=== PATIENT | male | born 2005 | race Caucasian/White ===

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

== ENCOUNTER 2025-01-21 17:14 | Inpatient (IN) | payer OTHER ==
--- NOTE | 2025-01-21 17:34 | ED ---
General Adult HPI - General Chief complaint: Nausea/Vomiting/Diarrhea Stated complaint: Hyperglycemia Time Seen by Provider: 01/21/25 17:15 Source: patient, EMS, RN notes reviewed Mode of arrival: EMS Limitations: no limitations - History of Present Illness Initial comments: Patient is a 19-year-old male present to the emergency department with concerns for hyperglycemia. Patient states his insulin pump stopped working last night. Patient states blood sugar got up over 400. Patient did have nausea and vomiting. Patient had polyuria and polydipsia. Patient does feel dry. No abdominal pain. Patient still has nausea. Patient does have history of DKA twice previously with similar symptoms - Related Data Previous Rx's Medication Instructions Recorded Ondansetron Odt [Zofran Odt] 4 mg PO Q8HR PRN #14 tab 07/24/24 Allergies Allergy/AdvReac Type Severity Reaction Status Date / Time No Known Allergies Allergy Verified 01/21/25 17:20 Review of Systems ROS Statement: Those systems with pertinent positive or pertinent negative responses have been documented in the HPI. ROS Other: All systems not noted in ROS Statement are negative. Constitutional: Denies: fever Eyes: Denies: eye pain ENT: Denies: ear pain Endocrine: Reports: polydipsia, polyuria Gastrointestinal: Reports: nausea, vomiting. Denies: abdominal pain Musculoskeletal: Denies: back pain Past Medical History Past Medical History: Diabetes Mellitus Past Surgical History: No Surgical Hx Reported Past Psychological History: Depression Smoking Status: Never smoker Past Alcohol Use History: None Reported Past Drug Use History: None Reported General Exam Limitations: no limitations General appearance: alert, in no apparent distress Head exam: Present: normocephalic Eye exam: Present: normal appearance ENT exam: Present: mucous membranes dry Neck exam: Present: normal inspection Respiratory exam: Present: normal lung sounds bilaterally Cardiovascular Exam: Present: tachycardia GI/Abdominal exam: Present: soft. Absent: tenderness Extremities exam: Present: normal inspection Neurological exam: Present: alert. Absent: motor sensory deficit Psychiatric exam: Present: normal affect, normal mood Skin exam: Present: normal color Course Vital Signs 01/21/25 17:16 Temperature 98.1 F Pulse Rate 122 H Respiratory 20 Rate Blood Pressure 135/75 O2 Sat by Pulse 100 Oximetry Medical Decision Making - Medical Decision Making Was pt. sent in by a medical professional or institution (, [place], [employer] CHAIR, urgent care, hospital, or assisted...) When possible be specific @ -No Did you speak to anyone other than the patient for history (EMS, parent, family, police, friend...)? What history was obtained from this source @ -No Did you review nursing and triage notes (agree or disagree)? Why? @ -I reviewed and agree with nursing and triage notes Were old charts reviewed (outside hosp., previous admission, EMS record, old EKG, old radiological studies, urgent care reports/EKG's, assisted records)? Report findings @ -No old charts were reviewed Differential Diagnosis (chest pain, altered mental status, abdominal pain women, abdominal pain men, vaginal bleeding, weakness, fever, dyspnea, syncope, headache, dizziness, GI bleed, back pain, seizure, CVA, palpatations, mental health, musculoskeletal)? @ -Differential Weakness: Hypoglycemia, shock, sepsis, hyponatremia, anemia, infection, IL, ETOH, adverse medicine reaction, overdose, stroke, this is not meant to be an all-inclusive list. EKG interpreted by me (3pts min.). @ -As above X-rays interpreted by me (1pt min.). @ -None done CT interpreted by me (1pt min.). @ -None done U/S interpreted by me (1pt. min.). @ -None done What testing was considered but not performed or refused? (CT, X-rays, U/S, labs)? Why? @ -None What meds were considered but not given or refused? Why? @ -None Did you discuss the management of the patient with other professionals (professionals i.e. , PA, [employer] CHAIR, lab, RT, psych nurse, social service director, licensing analyst, teacher, juvenile correctional officer, rn case mgr)? Give summary @ -Case was discussed with practitioner Carrie Pereira who will admit covering Dr. Crowley Was smoking cessation discussed for >3mins.? @ -No Was critical care preformed (if so, how long)? @ -32 minutes critical care time Were there social determinants of health that impacted care today? How? (Homelessness, low income, unemployed, alcoholism, drug addiction, transportation, low edu. Level, literacy, decrease access to med. care, skilled nursing, rehab)? @ -No Was there de-escalation of care discussed even if they declined (Discuss DNR or withdrawal of care, Hospice)? DNR status @ -No What co-morbidities impacted this encounter? (DM, HTN, Smoking, COPD, CAD, Cancer, CVA, ARF, Chemo, Hep., AIDS, mental health diagnosis, sleep apnea, morbid obesity)? @ -History of diabetes, history of DKA Was patient admitted / discharged? Hospital course, mention meds given and route, prescriptions, significant lab abnormalities, going to OR and other pertinent info. @ -Patient presents with malfunction of his insulin pump. Patient with polyuria polydipsia. Patient appears dehydrated on exam. Evaluation concerning for DKA. Patient will be admitted with DKA protocol. Patient reevaluated and updated. Admission orders written. Undiagnosed new problem with uncertain prognosis? @ -No Drug Therapy requiring intensive monitoring for toxicity (Heparin, Nitro, Insulin, Cardizem)? @ -No Were any procedures done? @ -No Diagnosis/symptom? @ -Diabetic ketoacidosis Acute, or Chronic, or Acute on Chronic? @ -Acute Uncomplicated (without systemic symptoms) or Complicated (systemic symptoms)? @ -Default Side effects of treatment? @ -No Exacerbation, Progression, or Severe Exacerbation? @ -No Poses a threat to life or bodily function? How? (Chest pain, [place], [place], pneumonia, PE, COPD, DKA, ARF, appy, cholecystitis, CVA, Diverticulitis, Homicidal, Suicidal, threat to staff... and all critical care pts) @ -Threat to metabolic function - Lab Data Result diagrams: 01/21/25 17:47 01/21/25 17:47 Lab Results 01/21/25 01/21/25 01/21/25 Range/Units 17:29 17:47 17:47 WBC 11.06 H (4.50-10.00) 10*3/uL RBC 5.16 (4.40-5.60) 10*6/uL Hgb 15.4 (13.0-17.0) g/dL Hct 46.2 (39.6-50.0) % MCV 89.5 (80.0-97.0) fL MCH 29.8 (27.0-32.0) pg MCHC 33.3 (32.0-37.0) g/dL Plt Count 327 (140-440) 10*3/uL MPV 9.4 L (9.5-12.2) fL Immature Gran % (Auto) 1.1 % Neutrophils % 86.0 % Lymphocytes % 8.7 % Monocytes % 3.3 % Eosinophils % 0.1 % Basophils % 0.8 % Immature Gran # 0.12 H (0.00-0.04) 10*3/uL Neutrophils # 9.52 H (1.80-7.70) 10*3/uL Lymphocytes # 0.96 (0.90-5.00) 10*3/uL Monocytes # 0.36 (0.20-1.00) 10*3/uL Eosinophils # 0.01 L (0.04-0.35) 10*3/uL Basophils # 0.09 (0.00-0.10) 10*3/uL Sodium 142 (137-145) mmol/L Potassium 5.6 H (3.5-5.1) mmol/L Chloride 105 (98-107) mmol/L Carbon Dioxide <5 L* (22-30) mmol/L Anion Gap mmol/L BUN 12 (9-20) mg/dL Creatinine 0.75 (0.66-1.25) mg/dL Est GFR (CKD-EPI)AfAm >90 (>60 ml/min/1.73 sqM) Est GFR (CKD-EPI)NonAf >90 (>60 ml/min/1.73 sqM) Glucose 350 H (74-99) mg/dL POC Glucose (mg/dL) 321 H (70-110) mg/dL POC Glu Dynamometer Tuner ID Angely Sargent Calcium 9.5 (8.4-10.2) mg/dL Total Bilirubin 0.5 (0.2-1.3) mg/dL AST 27 (17-59) U/L ALT 21 (4-49) U/L Alkaline Phosphatase 186 H (38-126) U/L Total Protein 8.3 H (6.3-8.2) g/dL Albumin 5.1 H (3.5-5.0) g/dL Amylase 43 (30-110) U/L Lipase 38 (23-300) U/L Acetone, Qual Positive (Negative) Critical Care Time Critical Care Time: Yes Disposition Clinical Impression: DKA (diabetic ketoacidosis) Disposition: ADMITTED IP TO THIS [facility] Condition: Serious Is patient prescribed a controlled substance at d/c from ED?: No Referrals: Wendy Crowley MD [Primary Care Provider] - 1-2 days Time of Disposition: 18:55
[2025-01-21 17:40] LABS: Glucose,Whole Blood 321 mg/dL (70-110)
[2025-01-21] MEDS: ONDANSETRON 4 MG/2 ML VIAL IVP STA (18:00)
[2025-01-21] MEDS: FAMOTIDINE 20 MG/2 ML VIAL IV STA (18:00)
[2025-01-21 18:01] LABS: Basophils # (A) 0.09 10*3/uL (0.00-0.10); Basophils % (A) 0.8 %; Eosinophils # (A) 0.01 10*3/uL (0.04-0.35); Eosinophils % (A) 0.1 %; HCT 46.2 % (39.6-50.0); HGB 15.4 g/dL (13.0-17.0); Lymphocytes # (A) 0.96 10*3/uL (0.90-5.00); Lymphocytes % (A) 8.7 %; MCH 29.8 pg (27.0-32.0); MCHC 33.3 g/dL (32.0-37.0); MCV 89.5 fL (80.0-97.0); Monocytes # (A) 0.36 10*3/uL (0.20-1.00); Monocytes % (A) 3.3 %; Neutrophils # (A) 9.52 10*3/uL (1.80-7.70); Neutrophils % (A) 86.0 %; Platelet Count 327 10*3/uL (140-440); RBC 5.16 10*6/uL (4.40-5.60); RDW 13.2 % (11.5-14.5); WBC 11.06 10*3/uL (4.50-10.00)
[2025-01-21] MEDS: SODIUM CHLORIDE 0.9% 1,000 ML IV ONE ×2 (18:01→19:44)
[2025-01-21 18:13] LABS: ALT 21 U/L (4-49); AST 27 U/L (17-59); African American GFR (CKD) >90 (>60 ml/min/1.73 sqM); Albumin 5.1 g/dL (3.5-5.0); Alkaline Phosphatase 186 U/L (38-126); Amylase 43 U/L (30-110); Blood Urea Nitrogen 12 mg/dL (9-20); Calcium 9.5 mg/dL (8.4-10.2); Chloride 105 mmol/L (98-107); Glucose 350 mg/dL (74-99); Lipase 38 U/L (23-300); Non-African American GFR(CKD) >90 (>60 ml/min/1.73 sqM); Potassium 5.6 mmol/L (3.5-5.1); Sodium 142 mmol/L (137-145); Total Protein 8.3 g/dL (6.3-8.2)
[2025-01-21 18:18] LABS: Carbon Dioxide <5 mmol/L (22-30)
[2025-01-21] MEDS: SODIUM CHLORIDE 0.9% 1,000 ML IV STA (19:08)
[2025-01-21] MEDS: ACETAMINOPHEN IV (For NPO) 1,000 MG in EMPTY BAG 1 BAG IVPB STA (19:37)
[2025-01-21] MEDS: INSULIN REGULAR BOLUS (FROM DRIP BAG) IV ONE (19:41)
[2025-01-21] MEDS: INSULIN REGULAR 100 UNIT in SODIUM CHLORIDE 0.9% 100 ML IV SCH (19:41)
[2025-01-21 20:04] LABS: Bacteria,Urine Rare /hpf; Bilirubin,Urine Negative (Negative); Blood,Urine Trace (Negative); Color,Urine Colorless; Glucose,Urine (UA) 4+ (Negative); Leukocyte Esterase,Urine Negative (Negative); Mucus,Urine Rare /hpf; Nitrite,Urine Negative (Negative); PH, Urine 5.0 (5.0-8.0); Protein,Urine Trace (Negative); Specific Gravity,Urine 1.018 (1.001-1.035); Urobilinogen,Urine <2.0 mg/dL (<2.0)
[2025-01-21 20:07] LABS: Ketones,Urine 4+ (Negative)
[2025-01-21] MEDS: SODIUM CHLORIDE 0.9% 1,000 ML IV SCH (20:30)
[2025-01-21 20:37] LABS: Glucose,Whole Blood 252 mg/dL (70-110)
[2025-01-21 21:06] LABS: Glucose,Whole Blood 211 mg/dL (70-110)
[2025-01-21 21:22] LABS: African American GFR (CKD) >90 (>60 ml/min/1.73 sqM); Blood Urea Nitrogen 9 mg/dL (9-20); Chloride 116 mmol/L (98-107); Glucose 248 mg/dL (74-99); Non-African American GFR(CKD) >90 (>60 ml/min/1.73 sqM); Potassium 4.8 mmol/L (3.5-5.1); Sodium 145 mmol/L (137-145)
[2025-01-21 21:34] LABS: Carbon Dioxide <5 mmol/L (22-30)
[2025-01-21 22:17] LABS: Glucose,Whole Blood 167 mg/dL (70-110)
[2025-01-21] MEDS: D5-0.45% NACL WITH KCL 20MEQ/L 1,000 ML IV SCH (22:24)
[2025-01-21 23:05] LABS: Glucose,Whole Blood 159 mg/dL (70-110)
[2025-01-22 00:07] LABS: Glucose,Whole Blood 158 mg/dL (70-110)
[2025-01-22 00:43] LABS: African American GFR (CKD) >90 (>60 ml/min/1.73 sqM); Anion Gap 22 mmol/L; Blood Urea Nitrogen 7 mg/dL (9-20); Chloride 111 mmol/L (98-107); Glucose 164 mg/dL (74-99); Non-African American GFR(CKD) >90 (>60 ml/min/1.73 sqM); Potassium 4.4 mmol/L (3.5-5.1); Sodium 139 mmol/L (137-145)
[2025-01-22 00:44] LABS: Carbon Dioxide 6 mmol/L (22-30)
[2025-01-22 00:58] LABS: Glucose,Whole Blood 167 mg/dL (70-110)
[2025-01-22 02:09] LABS: Glucose,Whole Blood 150 mg/dL (70-110)
[2025-01-22 02:59] LABS: Glucose,Whole Blood 136 mg/dL (70-110)
[2025-01-22 04:01] LABS: Glucose,Whole Blood 144 mg/dL (70-110)
[2025-01-22 04:23] LABS: African American GFR (CKD) >90 (>60 ml/min/1.73 sqM); Anion Gap 14 mmol/L; Blood Urea Nitrogen 7 mg/dL (9-20); Carbon Dioxide 11 mmol/L (22-30); Chloride 111 mmol/L (98-107); Glucose 150 mg/dL (74-99); Non-African American GFR(CKD) >90 (>60 ml/min/1.73 sqM); Potassium 4.2 mmol/L (3.5-5.1); Sodium 136 mmol/L (137-145)
[2025-01-22 05:11] LABS: Glucose,Whole Blood 227 mg/dL (70-110)
[2025-01-22 05:59] LABS: Glucose,Whole Blood 274 mg/dL (70-110)
[2025-01-22 06:58] LABS: Glucose,Whole Blood 274 mg/dL (70-110)
[2025-01-22 08:02] LABS: Glucose,Whole Blood 217 mg/dL (70-110)
[2025-01-22 08:34] LABS: African American GFR (CKD) >90 (>60 ml/min/1.73 sqM); Anion Gap 12 mmol/L; Blood Urea Nitrogen 7 mg/dL (9-20); Carbon Dioxide 15 mmol/L (22-30); Chloride 107 mmol/L (98-107); Glucose 229 mg/dL (74-99); Non-African American GFR(CKD) >90 (>60 ml/min/1.73 sqM); Potassium 3.6 mmol/L (3.5-5.1); Sodium 134 mmol/L (137-145)
[2025-01-22 09:00] LABS: Glucose,Whole Blood 177 mg/dL (70-110)
[2025-01-22 11:04] LABS: Glucose,Whole Blood 150 mg/dL (70-110)
[2025-01-22 12:07] LABS: Glucose,Whole Blood 154 mg/dL (70-110)
--- NOTE | 2025-01-22 12:25 | P.HPIM ---
History of Present Illness This is a pleasant 19 years old male with past medical history of insulin- dependent diabetes mellitus He presents because he was using insulin pump for many years but yesterday while he was sleep because he forgot to charge it. Patient states is nothing wrong with his pump machine but only he forgot to charge it. With the morning his sugar was already high so he came to the hospital with vomiting abdominal pain which is completely resolved now. Patient denies any other new complaint no chest pain or dyspnea. No abdominal pain vomiting diarrhea. No dysuria urgency. No headache dizziness weakness numbness. Patient denies smoking alcohol discharge. Patient hemodynamically stable afebrile. CBC BMP LFTs were unremarkable except for mild elevated leukocytes at 11.0. Hemoglobin 15.4. Sodium 134 and creatinine 0.6. Liver enzymes normal except for mildly elevated alkaline phosphatase but bilirubin is normal. EKG shows sinus tachycardia at [address]-T changes Acetone was positive. Urinalysis showing ketones and glucose in the urine. Review of Systems Review of systems CONSTITUTIONAL: No fever, no malaise, no fatigue. HEENT: No recent visual problems or hearing problems. Denied any sore throat. CARDIOVASCULAR: No orthopnea, PND, no palpitations, no syncope. PULMONARY: No shortness of breath, no cough, no hemoptysis. GASTROINTESTINAL: No diarrhea, no nausea, no vomiting, no abdominal pain. Normoactive bowel sounds. NEUROLOGICAL: No headaches, no weakness, no numbness. HEMATOLOGICAL: Denies any bleeding or petechiae. GENITOURINARY: Denies any burning micturition, frequency, or urgency. MUSCULOSKELETAL/RHEUMATOLOGICAL: Denies any joint pain, swelling, or any muscle pain. ENDOCRINE: Denies any polyuria or polydipsia. Past Medical History Past Medical History: Diabetes Mellitus History of Any Multi-Drug Resistant Organisms: None Reported Past Surgical History: No Surgical Hx Reported Additional Past Surgical History / Comment(s): Testicle surgery for a testicle that didn't descend. Past Anesthesia/Blood Transfusion Reactions: No Reported Reaction Smoking Status: Never smoker - Past Family History Mother Family Medical History: Diabetes Mellitus Additional Family Medical History / Comment(s): Type 1 and type 2 DM run in family. Medications and Allergies Home Medications Medication Instructions Recorded Confirmed Type INSULIN LISPRO (For Pump) [humaLOG 0.01 units SQ-PUMP CONTINUOUS 01/21/25 01/21/25 History (For Pump)] Allergies Allergy/AdvReac Type Severity Reaction Status Date / Time No Known Allergies Allergy Verified 01/21/25 19:29 Physical Exam Vitals: Vital Signs Temp Pulse Pulse Resp BP BP Pulse Ox 01/22/25 11:10 97.7 F 81 16 106/70 97 01/22/25 07:55 98.6 F 89 16 118/66 97 01/22/25 04:00 98.1 F 87 16 118/66 99 01/22/25 00:00 98.4 F 101 H 18 123/61 99 01/21/25 21:12 98.0 F 119 H 18 144/76 99 01/21/25 20:40 98.0 F 114 H 20 132/68 99 01/21/25 19:53 117 H 20 133/67 98 01/21/25 18:30 116 H 16 115/65 99 01/21/25 18:00 122 H 16 141/71 98 01/21/25 17:16 98.1 F 122 H 20 135/75 100 Intake and Output 01/21/25 01/22/25 01/22/25 22:59 06:59 14:59 Intake Total 53.574 9.186 Balance 53.574 9.186 Intake: Intake, IV Titration 53.574 9.186 Amount Insulin Regular 100 unit 53.574 9.186 In Sodium Chloride 0.9% 100 ml @ 0.1 UNITS/KG/HR 6.872 mls/hr IV .[id number] [facility] Rx#:[id number] Other: Voiding Method Toilet Toilet # Voids 1 1 1 Weight 68.039 kg 60.2 kg GENERAL: The patient is alert and oriented x3, not in any acute distress. Well developed, well nourished. HEENT: Pupils are round and equally reacting to light. EOMI. No scleral icterus. No conjunctival pallor. Normocephalic, atraumatic. No pharyngeal erythema. No thyromegaly. CARDIOVASCULAR: S1 and S2 present. No murmurs, rubs, or gallops. PULMONARY: Chest is clear to auscultation, no wheezing , no crackles. ABDOMEN: Soft, nontender, nondistended, normoactive bowel sounds. No palpable organomegaly. MUSCULOSKELETAL: No joint swelling or deformity. EXTREMITIES: No cyanosis, clubbing, or pedal edema. NEUROLOGICAL: Gross neurological examination did not reveal any focal deficits. SKIN: No rashes. no petechiae. Results CBC & Chem 7: 01/21/25 17:47 01/22/25 07:37 Labs: Abnormal Lab Results - Last 24 Hours (Table) 01/21/25 01/21/25 01/21/25 Range/Units 17:29 17:47 17:47 WBC 11.06 H (4.50-10.00) 10*3/uL MPV 9.4 L (9.5-12.2) fL Immature Gran # 0.12 H (0.00-0.04) 10*3/uL Neutrophils # 9.52 H (1.80-7.70) 10*3/uL Eosinophils # 0.01 L (0.04-0.35) 10*3/uL Sodium (137-145) mmol/L Potassium 5.6 H (3.5-5.1) mmol/L Chloride (98-107) mmol/L Carbon Dioxide <5 L* (22-30) mmol/L BUN (9-20) mg/dL Creatinine (0.66-1.25) mg/dL Glucose 350 H (74-99) mg/dL POC Glucose (mg/dL) 321 H (70-110) mg/dL Phosphorus (2.5-4.5) mg/dL Alkaline Phosphatase 186 H (38-126) U/L Total Protein 8.3 H (6.3-8.2) g/dL Albumin 5.1 H (3.5-5.0) g/dL Urine Protein (Negative) Urine Glucose (UA) (Negative) Urine Ketones (Negative) Urine Blood (Negative) Urine Bacteria (None) /hpf Urine Mucus (None) /hpf 01/21/25 01/21/25 01/21/25 Range/Units 19:47 20:22 20:34 WBC (4.50-10.00) 10*3/uL MPV (9.5-12.2) fL Immature Gran # (0.00-0.04) 10*3/uL Neutrophils # (1.80-7.70) 10*3/uL Eosinophils # (0.04-0.35) 10*3/uL Sodium (137-145) mmol/L Potassium (3.5-5.1) mmol/L Chloride 116 H (98-107) mmol/L Carbon Dioxide <5 L* (22-30) mmol/L BUN (9-20) mg/dL Creatinine (0.66-1.25) mg/dL Glucose 248 H (74-99) mg/dL POC Glucose (mg/dL) 252 H (70-110) mg/dL Phosphorus (2.5-4.5) mg/dL Alkaline Phosphatase (38-126) U/L Total Protein (6.3-8.2) g/dL Albumin (3.5-5.0) g/dL Urine Protein Trace H (Negative) Urine Glucose (UA) 4+ H (Negative) Urine Ketones 4+ H (Negative) Urine Blood Trace H (Negative) Urine Bacteria Rare H (None) /hpf Urine Mucus Rare H (None) /hpf 01/21/25 01/21/25 01/21/25 Range/Units 20:58 22:02 22:59 WBC (4.50-10.00) 10*3/uL MPV (9.5-12.2) fL Immature Gran # (0.00-0.04) 10*3/uL Neutrophils # (1.80-7.70) 10*3/uL Eosinophils # (0.04-0.35) 10*3/uL Sodium (137-145) mmol/L Potassium (3.5-5.1) mmol/L Chloride (98-107) mmol/L Carbon Dioxide (22-30) mmol/L BUN (9-20) mg/dL Creatinine (0.66-1.25) mg/dL Glucose (74-99) mg/dL POC Glucose (mg/dL) 211 H 167 H 159 H (70-110) mg/dL Phosphorus (2.5-4.5) mg/dL Alkaline Phosphatase (38-126) U/L Total Protein (6.3-8.2) g/dL Albumin (3.5-5.0) g/dL Urine Protein (Negative) Urine Glucose (UA) (Negative) Urine Ketones (Negative) Urine Blood (Negative) Urine Bacteria (None) /hpf Urine Mucus (None) /hpf 01/22/25 01/22/25 01/22/25 Range/Units 00:01 00:04 00:56 WBC (4.50-10.00) 10*3/uL MPV (9.5-12.2) fL Immature Gran # (0.00-0.04) 10*3/uL Neutrophils # (1.80-7.70) 10*3/uL Eosinophils # (0.04-0.35) 10*3/uL Sodium (137-145) mmol/L Potassium (3.5-5.1) mmol/L Chloride 111 H (98-107) mmol/L Carbon Dioxide 6 L* (22-30) mmol/L BUN 7 L (9-20) mg/dL Creatinine 0.55 L (0.66-1.25) mg/dL Glucose 164 H (74-99) mg/dL POC Glucose (mg/dL) 158 H 167 H (70-110) mg/dL Phosphorus (2.5-4.5) mg/dL Alkaline Phosphatase (38-126) U/L Total Protein (6.3-8.2) g/dL Albumin (3.5-5.0) g/dL Urine Protein (Negative) Urine Glucose (UA) (Negative) Urine Ketones (Negative) Urine Blood (Negative) Urine Bacteria (None) /hpf Urine Mucus (None) /hpf 01/22/25 01/22/25 01/22/25 Range/Units 02:08 02:57 03:51 WBC (4.50-10.00) 10*3/uL MPV (9.5-12.2) fL Immature Gran # (0.00-0.04) 10*3/uL Neutrophils # (1.80-7.70) 10*3/uL Eosinophils # (0.04-0.35) 10*3/uL Sodium 136 L (137-145) mmol/L Potassium (3.5-5.1) mmol/L Chloride 111 H (98-107) mmol/L Carbon Dioxide 11 L (22-30) mmol/L BUN 7 L (9-20) mg/dL Creatinine 0.52 L (0.66-1.25) mg/dL Glucose 150 H (74-99) mg/dL POC Glucose (mg/dL) 150 H 136 H (70-110) mg/dL Phosphorus 2.2 L (2.5-4.5) mg/dL Alkaline Phosphatase (38-126) U/L Total Protein (6.3-8.2) g/dL Albumin (3.5-5.0) g/dL Urine Protein (Negative) Urine Glucose (UA) (Negative) Urine Ketones (Negative) Urine Blood (Negative) Urine Bacteria (None) /hpf Urine Mucus (None) /hpf 01/22/25 01/22/25 01/22/25 Range/Units 03:58 05:08 05:57 WBC (4.50-10.00) 10*3/uL MPV (9.5-12.2) fL Immature Gran # (0.00-0.04) 10*3/uL Neutrophils # (1.80-7.70) 10*3/uL Eosinophils # (0.04-0.35) 10*3/uL Sodium (137-145) mmol/L Potassium (3.5-5.1) mmol/L Chloride (98-107) mmol/L Carbon Dioxide (22-30) mmol/L BUN (9-20) mg/dL Creatinine (0.66-1.25) mg/dL Glucose (74-99) mg/dL POC Glucose (mg/dL) 144 H 227 H 274 H (70-110) mg/dL Phosphorus (2.5-4.5) mg/dL Alkaline Phosphatase (38-126) U/L Total Protein (6.3-8.2) g/dL Albumin (3.5-5.0) g/dL Urine Protein (Negative) Urine Glucose (UA) (Negative) Urine Ketones (Negative) Urine Blood (Negative) Urine Bacteria (None) /hpf Urine Mucus (None) /hpf 01/22/25 01/22/25 01/22/25 Range/Units 06:56 07:37 08:00 WBC (4.50-10.00) 10*3/uL MPV (9.5-12.2) fL Immature Gran # (0.00-0.04) 10*3/uL Neutrophils # (1.80-7.70) 10*3/uL Eosinophils # (0.04-0.35) 10*3/uL Sodium 134 L (137-145) mmol/L Potassium (3.5-5.1) mmol/L Chloride (98-107) mmol/L Carbon Dioxide 15 L (22-30) mmol/L BUN 7 L (9-20) mg/dL Creatinine 0.60 L (0.66-1.25) mg/dL Glucose 229 H (74-99) mg/dL POC Glucose (mg/dL) 274 H 217 H (70-110) mg/dL Phosphorus 1.9 L (2.5-4.5) mg/dL Alkaline Phosphatase (38-126) U/L Total Protein (6.3-8.2) g/dL Albumin (3.5-5.0) g/dL Urine Protein (Negative) Urine Glucose (UA) (Negative) Urine Ketones (Negative) Urine Blood (Negative) Urine Bacteria (None) /hpf Urine Mucus (None) /hpf 01/22/25 01/22/25 01/22/25 Range/Units 08:58 11:03 12:06 WBC (4.50-10.00) 10*3/uL MPV (9.5-12.2) fL Immature Gran # (0.00-0.04) 10*3/uL Neutrophils # (1.80-7.70) 10*3/uL Eosinophils # (0.04-0.35) 10*3/uL Sodium (137-145) mmol/L Potassium (3.5-5.1) mmol/L Chloride (98-107) mmol/L Carbon Dioxide (22-30) mmol/L BUN (9-20) mg/dL Creatinine (0.66-1.25) mg/dL Glucose (74-99) mg/dL POC Glucose (mg/dL) 177 H 150 H 154 H (70-110) mg/dL Phosphorus (2.5-4.5) mg/dL Alkaline Phosphatase (38-126) U/L Total Protein (6.3-8.2) g/dL Albumin (3.5-5.0) g/dL Urine Protein (Negative) Urine Glucose (UA) (Negative) Urine Ketones (Negative) Urine Blood (Negative) Urine Bacteria (None) /hpf Urine Mucus (None) /hpf Thrombosis Risk Factor Assmnt - Choose All That Apply Any of the Below Risk Factors Present?: No Other Risk Factors: No Other congenital or acquired thrombophilia - If yes, enter type in comment: No Thrombosis Risk Factor Assessment Level: Very Low Risk Assessment and Plan Assessment: Diabetic ketoacidosis Diabetes mellitus type 1 with hyperglycemia Nonadherence to therapy Plan: Continue with insulin drip Continue with encouraging hydration Monitor anion gap and was close can specialist his insulin pump and start diet Counseled about importance of intensive therapy Labs and medication were reviewed.. Continue same treatment. Continue with symptomatic treatment. Resume home medication. Monitor labs and vitals. DVT and GI prophylaxis. Further recommendations as per clinical course of the patient DVT prophylaxis: Subcutaneous heparin GI Prophylaxis: Pepcid
[2025-01-22 13:00] LABS: Glucose,Whole Blood 170 mg/dL (70-110)
[2025-01-22 13:58] LABS: ALT 12 U/L (4-49); AST 15 U/L (17-59); African American GFR (CKD) >90 (>60 ml/min/1.73 sqM); Albumin 3.3 g/dL (3.5-5.0); Alkaline Phosphatase 104 U/L (38-126); Anion Gap 10 mmol/L; Blood Urea Nitrogen 6 mg/dL (9-20); Calcium 8.3 mg/dL (8.4-10.2); Carbon Dioxide 18 mmol/L (22-30); Chloride 106 mmol/L (98-107); Glucose 184 mg/dL (74-99); Non-African American GFR(CKD) >90 (>60 ml/min/1.73 sqM); Potassium 3.6 mmol/L (3.5-5.1); Sodium 134 mmol/L (137-145); Total Protein 5.6 g/dL (6.3-8.2)
[2025-01-22 15:14] LABS: Glucose,Whole Blood 199 mg/dL (70-110)
[2025-01-22 16:03] LABS: Glucose,Whole Blood 231 mg/dL (70-110)
[2025-01-22 17:02] LABS: Glucose,Whole Blood 237 mg/dL (70-110)
[2025-01-22 17:59] LABS: ALT 14 U/L (4-49); AST 23 U/L (17-59); African American GFR (CKD) >90 (>60 ml/min/1.73 sqM); Albumin 3.5 g/dL (3.5-5.0); Alkaline Phosphatase 123 U/L (38-126); Anion Gap 15 mmol/L; Blood Urea Nitrogen 5 mg/dL (9-20); Calcium 8.8 mg/dL (8.4-10.2); Carbon Dioxide 16 mmol/L (22-30); Chloride 103 mmol/L (98-107); Glucose 227 mg/dL (74-99); Non-African American GFR(CKD) >90 (>60 ml/min/1.73 sqM); Potassium 3.8 mmol/L (3.5-5.1); Sodium 134 mmol/L (137-145); Total Protein 6.0 g/dL (6.3-8.2)
[2025-01-22 18:07] LABS: Glucose,Whole Blood 216 mg/dL (70-110)
[2025-01-22] MEDS ORDERED: Phosphorus Replacement Protoco 1 EACH MISC MISCELLANE PRN (18:29)
[2025-01-22] MEDS: POTAS-SOD-PHOS 280-160-250 MG 1 EACH PACKET PO ONE (18:47)
[2025-01-22 19:01] LABS: Glucose,Whole Blood 241 mg/dL (70-110)
[2025-01-22] MEDS: FAMOTIDINE 20 MG/2 ML VIAL IV SCH (19:46)
[2025-01-22] MEDS: HEPARIN SODIUM,PORCINE 5,000 UNIT/ML 1 ML VIAL SQ SCH (19:48)
[2025-01-22 20:04] LABS: Glucose,Whole Blood 220 mg/dL (70-110)
[2025-01-22 21:05] LABS: Glucose,Whole Blood 272 mg/dL (70-110)
[2025-01-22 22:15] LABS: Glucose,Whole Blood 212 mg/dL (70-110)
[2025-01-22 23:08] LABS: Glucose,Whole Blood 213 mg/dL (70-110)
[2025-01-22 23:44] LABS: Chloride 103 mmol/L (98-107)
[2025-01-22 23:47] LABS: ALT 13 U/L (4-49); AST 19 U/L (17-59); African American GFR (CKD) >90 (>60 ml/min/1.73 sqM); Albumin 3.3 g/dL (3.5-5.0); Alkaline Phosphatase 103 U/L (38-126); Anion Gap 10 mmol/L; Blood Urea Nitrogen 4 mg/dL (9-20); Calcium 8.5 mg/dL (8.4-10.2); Carbon Dioxide 20 mmol/L (22-30); Glucose 220 mg/dL (74-99); Non-African American GFR(CKD) >90 (>60 ml/min/1.73 sqM); Potassium 3.5 mmol/L (3.5-5.1); Sodium 133 mmol/L (137-145); Total Protein 5.6 g/dL (6.3-8.2)
[2025-01-23 00:16] LABS: Glucose,Whole Blood 191 mg/dL (70-110)
[2025-01-23 01:03] LABS: Glucose,Whole Blood 178 mg/dL (70-110)
[2025-01-23 04:13] VITALS: TEMP 98.1
[2025-01-23 04:47] LABS: Basophils # (A) 0.07 10*3/uL (0.00-0.10); Basophils % (A) 1.0 %; Eosinophils # (A) 0.57 10*3/uL (0.04-0.35); Eosinophils % (A) 8.3 %; HCT 35.0 % (39.6-50.0); HGB 12.6 g/dL (13.0-17.0); Lymphocytes # (A) 2.83 10*3/uL (0.90-5.00); Lymphocytes % (A) 41.2 %; MCH 30.3 pg (27.0-32.0); MCHC 36.0 g/dL (32.0-37.0); Monocytes # (A) 0.41 10*3/uL (0.20-1.00); Monocytes % (A) 6.0 %; Neutrophils # (A) 2.96 10*3/uL (1.80-7.70); Neutrophils % (A) 43.1 %; Platelet Count 233 10*3/uL (140-440); RBC 4.16 10*6/uL (4.40-5.60); RDW 12.8 % (11.5-14.5); WBC 6.87 10*3/uL (4.50-10.00)
[2025-01-23 05:06] LABS: MCV 84.1 fL (80.0-97.0)
[2025-01-23 05:51] LABS: Glucose,Whole Blood 220 mg/dL (70-110)
[2025-01-23 05:55] LABS: African American GFR (CKD) >90 (>60 ml/min/1.73 sqM); Anion Gap 10 mmol/L; Blood Urea Nitrogen 4 mg/dL (9-20); Calcium 8.3 mg/dL (8.4-10.2); Carbon Dioxide 21 mmol/L (22-30); Chloride 101 mmol/L (98-107); Glucose 224 mg/dL (74-99); Non-African American GFR(CKD) >90 (>60 ml/min/1.73 sqM); Potassium 3.6 mmol/L (3.5-5.1); Sodium 132 mmol/L (137-145)
[2025-01-23 10:32] VITALS: BMI 20.5
[2025-01-23 11:12] VITALS: BP 115/64; PULSE 58; RESP 15
[2025-01-23 11:22] LABS: Glucose,Whole Blood 308 mg/dL (70-110)
[2025-01-23 15:32] LABS: Glucose,Whole Blood 319 mg/dL (70-110)
--- NOTE | 2025-01-23 16:45 | P.PN ---
Subjective Progress Note Date: 01/23/25 This is a pleasant 19 years old male with past medical history of insulin- dependent diabetes mellitus He presents because he was using insulin pump for many years but yesterday while he was sleep because he forgot to charge it. Patient states is nothing wrong with his pump machine but only he forgot to charge it. With the morning his sugar was already high so he came to the hospital with vomiting abdominal pain which is completely resolved now. Patient denies any other new complaint no chest pain or dyspnea. No abdominal pain vomiting diarrhea. No dysuria urgency. No headache dizziness weakness numbness. Patient denies smoking alcohol discharge. Patient hemodynamically stable afebrile. CBC BMP LFTs were unremarkable except for mild elevated leukocytes at 11.0. Hemoglobin 15.4. Sodium 134 and creatinine 0.6. Liver enzymes normal except for mildly elevated alkaline phosphatase but bilirubin is normal. EKG shows sinus tachycardia at [address]-T changes Acetone was positive. Urinalysis showing ketones and glucose in the urine. Subjective: Patient seen at bedside. No significant overnight events. Patient has no complaints, states he is feeling well and is looking forward to going home. Reports he was able to eat some food this morning. Pertinent positives and negatives discussed above, a complete review of systems was preformed and all the other sytems were negative. Vitals Signs Reveiwed. General: non toxic, no distress, appears at stated age, normal weight Derm: no unusual rashes/lesions, warm Head: atraumatic, normocephalic, symmetric Eyes: EOMI, no lid lag, anicteric sclera, pupils equal round reactive to light ENT: Nose and ears atraumatic Neck: No cervical lymphadenopathy, trachea midline, supple Mouth: no lip lesion, mucus membranes moist Cardiovascular: S1S2 reg, no murmur, positive dorsalis pedis pulse bilateral, no edema Lungs: Decreased air entry bilaterally, no rhonchi, no rales, no accessory muscle use Abdominal: soft, nontender to palpation, no guarding Ext: muscle strength 5 out of 5 in all 4 extremities grossly, no gross muscle atrophy, no contractures, Psych: Alert, oriented, appropriate affect Data Reveiwed Today: Patient Labs: WBC 6.8, hemoglobin 12.6, sodium 132, potassium 3.6, bicarb 21, BUN 0.5, anion gap 10, glucose 224, phosphorus 1.8. Assesment and Plan: #DKA #Diabetes mellitus type 1 with hyperglycemia #Nonfunctional insulin pump due to lack of charging - Continue insulin drip - Monitor anion gap and once close can recontinue insulin pump and begin diet F NS E phosphorus N clear liquid diet A as tolerated DVT ppx: Heparin 5000 SQ every 12 GI ppx: Pepcid 20 mg IV twice daily Code Status: Full code Anticipated discharge place: To home Anticipated discharge time: Pending clinical course Objective - Vital Signs Vital signs: Vital Signs Temp 98.1 F 01/23/25 04:00 Pulse 78 01/23/25 04:00 Resp 18 01/23/25 04:00 BP 115/71 01/23/25 04:00 Pulse Ox 98 01/23/25 04:00 FiO2 Intake & Output 01/22/25 01/23/25 01/23/25 18:59 06:59 18:59 Intake Total 14.441 7.197 Balance 14.441 7.197 Weight 60.2 kg 61.3 kg Intake: Intake, IV Titration 14.441 7.197 Amount Insulin Regular 100 unit 14.441 7.197 In Sodium Chloride 0.9% 100 ml @ 0.1 UNITS/KG/HR 6.872 mls/hr IV .[id number] [facility] Rx#:[id number] Other: Voiding Method Toilet Toilet # Voids 1 2 - Labs CBC & Chem 7: 01/23/25 04:34 01/23/25 04:34 Labs: Abnormal Lab Results - Last 24 Hours (Table) 01/22/25 01/22/25 01/22/25 Range/Units 07:37 08:58 11:03 RBC (4.40-5.60) 10*6/uL Hgb (13.0-17.0) g/dL Hct (39.6-50.0) % MPV (9.5-12.2) fL Eosinophils # (0.04-0.35) 10*3/uL Sodium 134 L (137-145) mmol/L Carbon Dioxide 15 L (22-30) mmol/L BUN 7 L (9-20) mg/dL Creatinine 0.60 L (0.66-1.25) mg/dL Glucose 229 H (74-99) mg/dL POC Glucose (mg/dL) 177 H 150 H (70-110) mg/dL Calcium (8.4-10.2) mg/dL Phosphorus 1.9 L (2.5-4.5) mg/dL AST (17-59) U/L Total Protein (6.3-8.2) g/dL Albumin (3.5-5.0) g/dL 01/22/25 01/22/25 01/22/25 Range/Units 12:06 12:59 13:18 RBC (4.40-5.60) 10*6/uL Hgb (13.0-17.0) g/dL Hct (39.6-50.0) % MPV (9.5-12.2) fL Eosinophils # (0.04-0.35) 10*3/uL Sodium 134 L (137-145) mmol/L Carbon Dioxide 18 L (22-30) mmol/L BUN 6 L (9-20) mg/dL Creatinine 0.50 L (0.66-1.25) mg/dL Glucose 184 H (74-99) mg/dL POC Glucose (mg/dL) 154 H 170 H (70-110) mg/dL Calcium 8.3 L (8.4-10.2) mg/dL Phosphorus 1.8 L (2.5-4.5) mg/dL AST 15 L (17-59) U/L Total Protein 5.6 L (6.3-8.2) g/dL Albumin 3.3 L (3.5-5.0) g/dL 01/22/25 01/22/25 01/22/25 Range/Units 15:13 16:02 17:01 RBC (4.40-5.60) 10*6/uL Hgb (13.0-17.0) g/dL Hct (39.6-50.0) % MPV (9.5-12.2) fL Eosinophils # (0.04-0.35) 10*3/uL Sodium (137-145) mmol/L Carbon Dioxide (22-30) mmol/L BUN (9-20) mg/dL Creatinine (0.66-1.25) mg/dL Glucose (74-99) mg/dL POC Glucose (mg/dL) 199 H 231 H 237 H (70-110) mg/dL Calcium (8.4-10.2) mg/dL Phosphorus (2.5-4.5) mg/dL AST (17-59) U/L Total Protein (6.3-8.2) g/dL Albumin (3.5-5.0) g/dL 01/22/25 01/22/25 01/22/25 Range/Units 17:28 18:06 18:58 RBC (4.40-5.60) 10*6/uL Hgb (13.0-17.0) g/dL Hct (39.6-50.0) % MPV (9.5-12.2) fL Eosinophils # (0.04-0.35) 10*3/uL Sodium 134 L (137-145) mmol/L Carbon Dioxide 16 L (22-30) mmol/L BUN 5 L (9-20) mg/dL Creatinine 0.38 L (0.66-1.25) mg/dL Glucose 227 H (74-99) mg/dL POC Glucose (mg/dL) 216 H 241 H (70-110) mg/dL Calcium (8.4-10.2) mg/dL Phosphorus 1.6 L (2.5-4.5) mg/dL AST (17-59) U/L Total Protein 6.0 L (6.3-8.2) g/dL Albumin (3.5-5.0) g/dL 01/22/25 01/22/25 01/22/25 Range/Units 20:02 21:03 22:04 RBC (4.40-5.60) 10*6/uL Hgb (13.0-17.0) g/dL Hct (39.6-50.0) % MPV (9.5-12.2) fL Eosinophils # (0.04-0.35) 10*3/uL Sodium (137-145) mmol/L Carbon Dioxide (22-30) mmol/L BUN (9-20) mg/dL Creatinine (0.66-1.25) mg/dL Glucose (74-99) mg/dL POC Glucose (mg/dL) 220 H 272 H 212 H (70-110) mg/dL Calcium (8.4-10.2) mg/dL Phosphorus (2.5-4.5) mg/dL AST (17-59) U/L Total Protein (6.3-8.2) g/dL Albumin (3.5-5.0) g/dL 01/22/25 01/22/25 01/23/25 Range/Units 22:39 23:01 00:05 RBC (4.40-5.60) 10*6/uL Hgb (13.0-17.0) g/dL Hct (39.6-50.0) % MPV (9.5-12.2) fL Eosinophils # (0.04-0.35) 10*3/uL Sodium 133 L (137-145) mmol/L Carbon Dioxide 20 L (22-30) mmol/L BUN 4 L (9-20) mg/dL Creatinine 0.44 L (0.66-1.25) mg/dL Glucose 220 H (74-99) mg/dL POC Glucose (mg/dL) 213 H 191 H (70-110) mg/dL Calcium (8.4-10.2) mg/dL Phosphorus 1.7 L (2.5-4.5) mg/dL AST (17-59) U/L Total Protein 5.6 L (6.3-8.2) g/dL Albumin 3.3 L (3.5-5.0) g/dL 01/23/25 01/23/25 01/23/25 Range/Units 01:02 04:34 04:34 RBC 4.16 L (4.40-5.60) 10*6/uL Hgb 12.6 L (13.0-17.0) g/dL Hct 35.0 L (39.6-50.0) % MPV 9.2 L (9.5-12.2) fL Eosinophils # 0.57 H (0.04-0.35) 10*3/uL Sodium 132 L (137-145) mmol/L Carbon Dioxide 21 L (22-30) mmol/L BUN 4 L (9-20) mg/dL Creatinine 0.50 L (0.66-1.25) mg/dL Glucose 224 H (74-99) mg/dL POC Glucose (mg/dL) 178 H (70-110) mg/dL Calcium 8.3 L (8.4-10.2) mg/dL Phosphorus 1.8 L (2.5-4.5) mg/dL AST (17-59) U/L Total Protein (6.3-8.2) g/dL Albumin (3.5-5.0) g/dL 01/23/25 Range/Units 05:50 RBC (4.40-5.60) 10*6/uL Hgb (13.0-17.0) g/dL Hct (39.6-50.0) % MPV (9.5-12.2) fL Eosinophils # (0.04-0.35) 10*3/uL Sodium (137-145) mmol/L Carbon Dioxide (22-30) mmol/L BUN (9-20) mg/dL Creatinine (0.66-1.25) mg/dL Glucose (74-99) mg/dL POC Glucose (mg/dL) 220 H (70-110) mg/dL Calcium (8.4-10.2) mg/dL Phosphorus (2.5-4.5) mg/dL AST (17-59) U/L Total Protein (6.3-8.2) g/dL Albumin (3.5-5.0) g/dL
--- NOTE | 2025-01-23 16:50 | P.DS ---
Providers Date of admission: 01/21/25 19:00 Attending physician: Honey San Primary care physician: Wendy Crowley [facility] Course: Discharge Diagnosis: Diabetic ketoacidosis Diabetes mellitus type 1 with hyperglycemia Nonadherence to therapy Hospital Course: This is a pleasant 19 years old male with past medical history of insulin- dependent diabetes mellitus He presents because he was using insulin pump for many years but yesterday while he was sleep because he forgot to charge it. Patient states is nothing wrong with his pump machine but only he forgot to charge it. With the morning his sugar was already high so he came to the hospital with vomiting abdominal pain which is completely resolved now. Patient denies any other new complaint no chest pain or dyspnea. No abdominal pain vomiting diarrhea. No dysuria urgency. No headache dizziness weakness numbness. Patient denies smoking alcohol discharge. Patient hemodynamically stable afebrile. CBC BMP LFTs were unremarkable except for mild elevated leukocytes at 11.0. Hemoglobin 15.4. Sodium 134 and creatinine 0.6. Liver enzymes normal except for mildly elevated alkaline phosphatase but bilirubin is normal. EKG shows sinus tachycardia at [address]-T changes Acetone was positive. Urinalysis showing ketones and glucose in the urine. Will admit to the hospital patient was started on insulin drip until his anion gap closed. At this time patient was restarted on his insulin pump which was charged and functional. At time of discharge patient was hemodynamically stable his symptoms of nausea and vomiting had ceased and he was feeling well for discharge to home. Patient is advised to follow-up with his PCP in 1 week. Denies having hand cultivator. Pt seen and examined at bedside: No significant overnight events, states he is feeling well and ready to go home. Vital signs reveiwed and stable: General: non toxic, no distress, appears at stated age, normal weight Derm: no unusual rashes/lesions, warm Head: atraumatic, normocephalic, symmetric Eyes: EOMI, no lid lag, anicteric sclera, pupils equal round reactive to light ENT: Nose and ears atraumatic Neck: No cervical lymphadenopathy, trachea midline, supple Mouth: no lip lesion, mucus membranes moist Cardiovascular: S1S2 reg, no murmur, positive dorsalis pedis pulse bilateral, no edema Lungs: Decreased air entry bilaterally, no rhonchi, no rales, no accessory muscle use Abdominal: soft, nontender to palpation, no guarding Ext: muscle strength 5 out of 5 in all 4 extremities grossly, no gross muscle atrophy, no contractures, Psych: Alert, oriented, appropriate affect A total of greater than 30 minutes were spent preparing this complex discarge summary. Patient was discharged on 01/23/25. Patient Condition at Discharge: Serious Plan - Discharge Summary Discharge Rx Participant: No New Discharge Prescriptions: Continue INSULIN LISPRO (For Pump) [humaLOG (For Pump)] 0.01 units SQ-PUMP CONTINUOUS Discharge Medication List INSULIN LISPRO (For Pump) [humaLOG (For Pump)] 0.01 units SQ-PUMP CONTINUOUS 01/21/25 [History] Follow up Appointment(s)/Referral(s): Wendy Crowley MD [Primary Care Provider] - 1-2 days (please call to schedule hopsital follow up ) Patient Instructions/Handouts: Diabetic Ketoacidosis (DC) Discharge Disposition: HOME SELF-CARE
== END 2025-01-23 15:32 | disposition home or self-care (01) | DRG 420 ==
LOC: EC 17:14 → 3SCARD 19:00
PROVIDERS: ADMIT Internal Medicine; ATTEND Internal Medicine
DX: E10.10 Type 1 diabetes mellitus with ketoacidosis without coma (principal); R74.8 Abnormal levels of other serum enzymes; R00.0 Tachycardia, unspecified; Z96.41 Presence of insulin pump (external) (internal); Z79.4 Long term (current) use of insulin; Z83.3 Family history of diabetes mellitus
CPT/HCPCS: 36415; 80048; 80051; 80053; 81001; 82009; 82150; 82565; 82947; 83690; 84100; 84520; 85025; 96361; 96365; 96375; 99291